=== PATIENT | female | born 1995 | race Two or more races ===

== ENCOUNTER 2017-12-24 17:53 | Emergency (ER) | payer SELFPAY | END 2017-12-24 19:30 | disposition left against medical advice (07) | LOC: M ED 17:53 | DX: Z53.21 Procedure and treatment not carried out due to patient leaving prior to being seen by health care provider (principal) ==

== ENCOUNTER → 2017-12-24 | Outpatient (REF) | payer OTHER | LOC: M SFHCLERA 20:57 | DX: H66.001 Acute suppurative otitis media without spontaneous rupture of ear drum, right ear (principal) ==

== ENCOUNTER 2018-01-21 21:05 | Emergency (ER) | payer OTHER | END 2018-01-21 22:13 | disposition left against medical advice (07) | LOC: M ED 21:05 | DX: R50.9 Fever, unspecified (principal); Z53.21 Procedure and treatment not carried out due to patient leaving prior to being seen by health care provider ==

== ENCOUNTER → 2019-03-02 | Outpatient (REF) | payer OTHER | LOC: M SFHCLERA 12:32 | PROVIDERS: ATTEND Physician Assistant | DX: R50.9 Fever, unspecified (principal) ==